=== PATIENT | male | born 1935 | race Caucasian/White ===

== ENCOUNTER 2017-04-18 17:01 | Inpatient (IN) | payer OTHER ==
[~2017-04-18] VITALS: Ht 177.8 cm; Wt 86.4 kg
--- NOTE | ~2017-04-18 | 2DMMODE ---
[facility] [place] [address] 2 D/M-MODE ECHOCARDIOGRAM Name: MARIAJOSE JOHNSON Room #: 204-P [facility] IN .#: [id number] Admission: 04/18/17 Attend Phys: Pilo Sotelo, Discharge: Date of : 39 Date of Service: 04/19/17 1614 Report #: [id number] THIS REPORT FOR: //name// APPROVED REPORT Study performed: 04/19/2017 12:48:32 EXAM: Comprehensive 2D, Doppler, and color-flow Echocardiogram Patient Location: Observation Status: routine BSA: 2.08 HR: 59 bpm BP: 126/70 mmHg Other Information Study Quality: Adequate Indications Chest Pain 2D Dimensions RVDd: 37.94 mm LVEF(%): 61.65 (>50%) IVSd: 9.05 (7-11mm) LVOT Diam: 22.14 (18-24mm) LVDd: 49.37 mm PWd: 9.63 (7-11mm) Ascending Ao: 32.17 (22-36mm) LVDs: 32.97 (25-40mm) Aortic Root: 33.70 mm Guillaume's LVEF: 61.65 % Volumes Left Atrial Volume (Systole) Single Plane 4CH: 63.91 mL Single Plane 2CH: 44.51 mL LA ESV Index: 28.00 mL/m2 Aortic Valve AoV Peak Zach.: 1.14 m/s AO Peak Gr.: 5.83 mmHg LVOT Max P.21 mmHg LVOT Max V: 0.90 m/s CHANTAL Vmax: 3.02 cm2 Mitral Valve E/A Ratio: 0.9 MV Decel. Time: 170.92 ms MV E Max Zach.: 0.75 m/s [facility] [place] [address] 2 D/M-MODE ECHOCARDIOGRAM Name: MARIAJOSE JOHNSON Room #: 204-P [facility] IN .R.#: [id number] Admission: 04/18/17 Attend Phys: Pilo Sotelo, Discharge: Date of : 39 Date of Service: 04/19/17 1614 Report #: [id number] MV A Zach.: 0.83 m/s MV PHT: 49.57 ms IVRT: 101.50 ms Pulmonary Valve PV Peak Zach.: 0.93 m/s PV Peak Gr.: 3.46 mmHg Pulmonary Vein P Vein S: 0.41 m/s P Vein A: 0.34 m/s P Vein D: 0.48 m/s P Vein A Dur.: 124.6 msec P Vein S/D Ratio: 0.85 Tricuspid Valve TR Peak Zach.: 2.59 m/s RAP Estimate: 5.00 mmHg TR Peak Gr.: 26.78 mmHg PA Pressure: 32.00 mmHg Left Ventricle The left ventricle is normal size. There is normal left ventricular wall thickness. The left ventricular systolic function is normal. The left ventricular ejection fraction is within the normal range. LVEF is 60%. Grade I - abnormal relaxation pattern. Right Ventricle The right ventricle is normal size. The right ventricular systolic function is normal. Atria The left atrium size is normal. The right atrium size is normal. Aortic Valve Aortic valve leaflets are thickened. Trace aortic regurgitation. There is no aortic valvular stenosis. Mitral Valve Mitral valve leaflets are mildly thickened. Trace mitral regurgitation. No evidence of mitral valve stenosis. Tricuspid Valve The tricuspid valve is normal in structure. There is trace tricuspid regurgitation. The right atrial pressure is estimated at 5 mmHg. There is mild pulmonary hypertension with an estimated PAP of 32 mmHg. Pulmonic Valve [address] [address] 2 D/M-MODE ECHOCARDIOGRAM Name: MARIAJOSE JOHNSON Room #: 204-P [facility] IN [facility]#: [id number] Admission: 04/18/17 Attend Phys: Pilo Sotelo, Discharge: Date of : 39 Date of Service: 04/19/17 1614 Report #: [id number] The pulmonary valve is normal in structure. Trace pulmonic regurgitation. Great Vessels The aortic root is normal in size. The ascending aorta is normal in size. IVC is normal in size and collapses >50% with inspiration. Pericardium There is no pericardial effusion. <Conclusion> The left ventricle is normal size. The left ventricular systolic function is normal. The left ventricular ejection fraction is within the normal range. LVEF is 60%. Grade I - abnormal relaxation pattern. The right ventricle is normal size. The left atrium size is normal. Aortic valve leaflets are thickened. Trace aortic regurgitation. Trace mitral regurgitation. There is trace tricuspid regurgitation. The right atrial pressure is estimated at 5 mmHg. There is mild pulmonary hypertension with an estimated PAP of 32 mmHg. There is no pericardial effusion. <ELECTRONICALLY SIGNED> By: Pilo Sotelo MD, FACC 04/19/17 1614 13 13 Pilo Sotelo MD, FACC /INF
--- NOTE | ~2017-04-18 | EKG ---
[address] [employer] [address] ELECTROCARDIOGRAM REPORT Name: MARIAJOSE JOHNSON Room #: 204- ADM IN M.R.#: [id number] Admission: 04/18/17 Attend Phys: Pilo Sotelo MD, Discharge: Date of : 37 Report #: [id number] THIS REPORT FOR: //name// [facility] Test Date: 2017-04-20 Test Time: 08:57:33 Pat Name: MARIAJOSE JOHNSON Department: Room: 204 P Gender: M National Sales Consultant: : 1935 Requested By: Pilo Sotelo Order Number: [id number] MD: Javier Camejo Measurements Intervals [place] Rate: 84 P: -6 [place]: 202 QRS: 30 QRSD: 73 T: 105 QT: 386 QTc: 457 Interpretive Statements Sinus rhythm Abnormal R-wave progression, early transition Nonspecific ST and T wave abnormality Compared to ECG 04/18/2017 17:02:56 No significant changes Electronically Signed On 04-20-2017 10:57:05 CDT by Javier Camejo [email or web address] <ELECTRONICALLY SIGNED> By: Javier Camejo MD, [facility] 04/20/17 1057 0857 0857 Javier Camejo MD, [facility] /EPI
--- NOTE | ~2017-04-18 | CATHLAB ---
[facility] [address] [place] [address] INVASIVE PROCEDURE REPORT Name: MARIAJOSE JOHNSON Room #: 204-P ADM IN .R.#: [id number] Admission: 04/18/17 Attend Phys: Pilo Sotelo, Discharge: Date of : 39 Date of Service: 04/19/17 1737 Report #: [id number] THIS REPORT FOR: //name// APPROVED REPORT Patient Details Patient Status: In-Patient Room #: 204 The patient is a 82 year-old male Event Personnel Pilo Sotelo Checking Department Supervisor, Milo Dan RN, Julia Hernadez RN RN, Anita Camilo, Abdon Ferguson Scrub Procedures Performed Art Access - R femoral artery* 81124 Initial Mod Sed Same Phys/QHP Gr5y 378119 10372 Mod Sed Same Phys/QHP Ea 055167 Left Heart Cath w/or w/o Coronaries [id number] [facility] w/wo Plasty Single LAD 641272 FFR 0601315 FFR Aortogram Abdominal Peripheral Angio 401214 Procedure Narrative The Right Groin^ was infiltrated with 1% Lidocaine subcutaneous anesthesia. A PINNACLE 6FR Sheath #[id number] sheath was inserted into the RFA^. Coronary angiography was performed using coronary diagnostic catheters. The right coronary system was accessed and visualized with a JR 4 catheter. The left coronary system was accessed and visualized with a JL 4 catheter. The left ventricle was accessed and visualized with a Pigtail catheter. Left ventricular/Aortic Valve gradient assessed via catheter pullback. Left ventriculogram was performed in 30 degree projection. The patient tolerated the procedure well and there were no complications associated with the procedure. Intraoperative Conscious Sedation Sedation start time: 08:50 Case end Time: 09:50 Fentanyl 50 mcg Versed 1 mg Fluoro Time: 12.20 minutes Dose: DAP 67360.30 cGycm2 1330 mGy Contrast Type and Amount: Visipaque 280 ml Hemodynamics The aortic pressure is 134/64 mmHg with a mean of 88 mmHg. [facility] [address] [place] [address] INVASIVE PROCEDURE REPORT Name: ALEXKRISMARIAJOSE Dionicio Room #: 204-P [facility]..#: [id number] Admission: 04/18/17 Attend Phys: Pilo Sotelo, Discharge: Date of : 37 Date of Service: 04/19/17 1737 Report #: [id number] ventricular pressure is 136/9 mmHg with a mean of mmHg. The left ventricular end diastolic pressure is 25 mmHg. PCI Technique Lesion Anticoagulation was achieved with Heparin. Percutaneous coronary intervention was performed on the first diagnonal branch segment. A LAUNCHER 6FR EBU 4 #[id number] Guide Catheter was used to engage the ostium. A Luge Wire .014 x 182CM #[id number] Interventional Guidewire was used to cross the lesion. BALLOON DILATION A Balloon catheter Sprinter OTW 2.25 x 12 #[id number] was inserted and inflated up to 4.00atm for 13seconds. Additional Inflation: 8.00atm for 30seconds. STENT DEPLOYMENT A drug-eluting stent RESOLUTE OTW 2.25 X 12 #[id number] was inserted and inflated up to 14.00atm for 29seconds. Conclusion #1 successful PTCA stent drug-eluting of the proximal diagonal branch subtotally occluded to 0% with CAROLIN grade 3 flow placement of a 2.25 x 12 resolute to 2.5 mm in size. 0% residual #2 LAD with a proximal mid vessel lesion of 70% FFR with 3 minute adenosine infusion 0.84 continue to treat this medically this extends around the apex #3 left main mildly disease giving rise to LAD and circumflex #4 moderate size circumflex artery with mild disease or so ostial first OM lesion of 70% with mild diffuse disease distally is nondominant but moderate distribution. #5 dominant right coronary artery with an eccentric mid vessel lesion of 50% mild diffuse disease distally anatomically dominant but codominant do the distribution of the circumflex by anatomy. #6 abdominal aorta intact without significant intervening mildly ectatic renal arteries are patent Recommendations and plan continue aggressive risk factor modification dual antiplatelet therapy at least one year will have close follow-up regarding this mid LAD lesion which does not warrant intervention yet. We'll have schedule follow-up with nuclear testing and/or symptoms in the next 3-6 months. [facility] [address] [place] [address] INVASIVE PROCEDURE REPORT Name: MARIAJOSE JOHNSON Room #: 204-P [facility] IN M.R.#: [id number] Admission: 04/18/17 Attend Phys: Pilo Sotelo, Discharge: Date of : 37 Date of Service: 04/19/171736 Report #: [id number] No lifting for 48 hours to line tub Jacuzzi or Beck for a week. No MRI or dental work for 3 months <ELECTRONICALLY SIGNED> By: Pilo Sotelo MD, FACC 04/19/171736 36 36 Pilo Sotelo MD, FACC /INF
--- NOTE | ~2017-04-18 | H ---
[facility] [place] [address] HISTORY AND PHYSICAL Name: ALEXFCO D Room #: 204-P [facility] IN M.R.#: [id number] Admission: 04/18/17 Attend Phys: Pilo Sotelo MD, Discharge: 04/20/17 Date of : 37 Report #: [id number] THIS REPORT FOR: //name// CC: BHARGAVI Sotelo DATE OF SERVICE: 04/18/2017 LOCATION: The patient is in 204. HISTORY OF PRESENT ILLNESS: The patient is an 82-year-old male patient who is referred to me through Dr. Sneed. He has been having some accelerating anginal pattern over the last couple of weeks. His worse episode was last night approximately 3:30 a.m. and actually would be early this morning with some mild shortness of breath, but this resolved after 15 or 20 minutes, and he elected not to come to the emergency room. He discussed this case ____ with Dr. Sneed this morning, and he called me and it sounds like he has been having some accelerating anginal pattern here. Subsequently brought to the emergency room for evaluation and found to have a troponin of 1.69. The EKG does not have a current of injury. He takes no medications. He does not have the known cardiac disease. There is no family history of premature coronary disease. He has been recommended cholesterol medicine by Dr. Maza but has refused this in the past. He has had borderline hypertension. He takes Benadryl only at night for sleep. SOCIAL HISTORY: He is a retired [employer]. He has remarried. He has lost 2 wives to cancer. Prior alcohol and minimal tobacco but none in years. FAMILY HISTORY: His father lived to . There is no premature coronary disease in the brothers, sisters or mother. REVIEW OF SYSTEMS: Negative except for some occasional nocturia. PAST MEDICAL HISTORY: Essentially negative except for borderline cholesterol. He has never been hospitalized. He takes no medications except Benadryl at night for sleep. LABORATORY WORK: Potassium 3.9, creatinine 1.4. Troponin 1.69. H and H are 14 and 42, platelets 198, white count 6.1. EKG: Normal sinus rhythm, normal tracing. His chest x-ray is normal, some minimal left basilar atelectasis, no acute process. PHYSICAL EXAMINATION: GENERAL: He is pleasant and alert. He is pain free. [facility] [address] [place] [address] HISTORY AND PHYSICAL Name: FCO JOHNSON Room #: [address] [place] [address]#: [id number] Admission: 04/18/17 Attend Phys: Pilo Sotelo MD, Discharge: 04/20/17 Date of : 37 Report #: [id number] VITAL SIGNS: Blood pressure 146/92, pulse 60s. HEENT: Eyes reveal xanthelasmas. Pharynx is clear. NECK: Shows preserved upstrokes without JVD or bruits. LUNGS: Clear. CARDIAC: Regular rate and rhythm, S1 and S2. There is no significant murmur or gallop. ABDOMEN: Soft. No HSM or abdominal bruit. EXTREMITIES: Reveal no edema. Distal pulses were intact. NEUROLOGIC: Nonfocal. SKIN: Warm and dry without xanthoma or ulcer. MUSCULOSKELETAL: Generalized arthritic changes. ASSESSMENT: 1. Jjr-UV-icwomurxc myocardial infarction with troponin elevation to 1.7 (currently pain free). 2. Suspected coronary artery disease based on above. 3. Hypercholesterolemia by history. 4. Borderline hypertension. RECOMMENDATIONS AND PLAN: He has gotten one shot of Lovenox in the Emergency Room, aspirin, Lipitor and a beta-sumeet, 25 of Toprol. We will repeat EKG, troponin and lipids in the morning. We will proceed to the catheterization lab to delineate the anatomy. We will also obtain echo Doppler looking for wall motion abnormality and valvular issues. Risks, benefits and alternatives were discussed with Fco and his . He does elect to proceed and will also forward on to Dr. Maza. Thank you for allowing us to assist in the care of this patient. <ELECTRONICALLY SIGNED> By: Pilo Sotelo MD, FACC 04/29/17 1232 2141 19 Pilo Sotelo MD, FACC /nt
--- NOTE | ~2017-04-18 | D ---
[facility] [place] [address] [place] [address] DISCHARGE SUMMARY Name: ALEXMARIAJOSE D Room #: 204-P [facility] IN M.R.#: [id number] Admission: 04/18/17 Attend Phys: Pilo Sotelo MD, Discharge: 04/20/17 Date of : 37 Report #: [id number] THIS REPORT FOR: //name// CC: BHARGAVI Sotelo DATE OF SERVICE: 04/20/2017 HOSPITAL COURSE: The patient is an 82-year-old male admitted with non-STEMI, recurrent chest pain and a slight elevation in troponin to 1.7. Subsequently stabilized, pain free and taken to the catheterization lab the following morning. Elevated lipids were found with cholesterol of 204, an LDL 127 and triglycerides 187. The catheterization lab revealed a subtotal diagonal branch, which was fairly large off of LAD system, which extended to the apex. This was successfully dilated and stented with a 2.25 x 12 Resolute drug-eluting stent, postdilated to 2.5 mm. CAROLIN grade 3 flow. Had some spasm initially and some transient vessel closure, but this did resolve. The LAD had a lesion just distal 65-70% eccentric lesion. I utilized FFR with 3-minute adenosine infusion. The FFR was 0.84, would suggest not to intervene into this vessel. I felt like there was some relatively unhealthy endothelium the way the diagonal reacted with the stent placement with spasm and transient vessel closure. I would like to get him stabilized and show definite ischemia in the anterior wall before any intervention to this LAD, although would be quite amenable. Mild RCA and circumflex disease. LV function was preserved. Troponin this morning was 1.98. Laboratory work is pending this morning. He is up and ambulating and feeling well. No recurrent chest pain or pressure. The groin side is stable, slightly tender. No bruit. He will be discharged to home on metoprolol 25, Effient 10 mg, full aspirin 325, Lipitor 40 mg, low dose RACHAEL inhibitor and 10 mg of lisinopril. No lifting for 48 hours. No lying in tub, Jacuzzi or Beck for a week. No MRI or dental work for 3 months. DISCHARGE DIAGNOSES: 1. Non-ST elevation myocardial infarction. 2. Coronary artery disease with successful PTCA stent, subtotal diagonal branch as stated above. Moderate LAD lesion, which we are following. 3. Hypercholesterolemia. 4. Borderline hypertension. RECOMMENDATIONS AND PLAN: As stated above, we will continue dual antiplatelet therapy 6-12 months. We will see him in 3 months and evaluation of the LAD lesion with stress echo or nuclear testing in the next 3-6 months, sooner if you have any anginal symptoms. I expect all of his anginal complaints to be [facility] [address] [place] [address] DISCHARGE SUMMARY Name: ALEXMARIAJOSE D Room #: 204-P [facility] IN M.R.#: [id number] Admission: 04/18/17 Attend Phys: Pilo Sotelo MD, Discharge: 04/20/17 Date of : 37 Report #: [id number] resolved with the stenting of the diagonal branch. Thank you for asking me to assist in the care of this patient. <ELECTRONICALLY SIGNED> By: Pilo Sotelo MD, FACC 04/29/17 1232 0832 0855 Pilo Sotelo MD, FACC /nt
--- NOTE | ~2017-04-18 | EKG ---
[address] [place] [place] [address] ELECTROCARDIOGRAM REPORT Name: MARIAJOSE JOHNSON Room #: 204-P ADM IN M.R.#: [id number] Admission: 04/18/17 Attend Phys: Pilo Sotelo MD, Discharge: Date of : 37 Report #: [id number] THIS REPORT FOR: //name// [facility] Test Date: 2017-04-19 Test Time: 06:51:40 Pat Name: MARIAJOSE JOHNSON Department: Room: [facility] Gender: M Instructional Coach: SHERIDAN : 1935 Requested By: Nikki Shanks Order Number: [id number] MD: Javier Camejo Measurements Intervals [place] Rate: 61 P: 20 [place]: 207 QRS: 47 QRSD: 79 T: 102 QT: 448 QTc: 452 Interpretive Statements Sinus rhythm Nonspecific ST segment abnormality Compared to ECG 04/18/2017 17:02:56 No significant change was found Electronically Signed On 04-20-2017 10:03:48 CDT by Javier Camejo [email or web address] <ELECTRONICALLY SIGNED> By: Javier Camejo MD, [facility] 04/20/17 1003 0651 0651 Javier Camejo MD, [facility] /EPI
--- NOTE | ~2017-04-18 | EKG ---
[address] [place] [address] ELECTROCARDIOGRAM REPORT Name: MARIAJOSE JOHNSON Room #: 204- ADM IN M.R.#: [id number] Admission: 04/18/17 Attend Phys: Pilo Sotelo MD, Discharge: Date of : 37 Report #: [id number] THIS REPORT FOR: //name// [facility] Test Date: 2017-04-19 Test Time: 13:22:17 Pat Name: MARIAJOSE JOHNSON Department: Room: 204 Gender: M Brush Head Maker: Hellen CORTEZ : 1935 Requested By: Pilo Sotelo Order Number: [id number] MD: Javier Camejo Measurements Intervals [place] Rate: 56 P: 20 ID: [id number] QRS: 37 QRSD: 77 T: 103 QT: 475 QTc: 459 Interpretive Statements Sinus bradycardia Abnormal R-wave progression, early transition Compared to ECG 04/18/2017 17:02:56 No significant change was found Electronically Signed On 04-20-2017 10:43:50 CDT by Javier Camejo [email or web address] <ELECTRONICALLY SIGNED> By: Javier Camejo MD, [facility] 04/20/17 1043 1322 1322 Javier Camejo MD, [facility] /EPI
--- NOTE | ~2017-04-18 | EKG ---
[address] [address] ELECTROCARDIOGRAM REPORT Name: MARIAJOSE JOHNSON Room #: 204-P ADM IN M.R.#: [id number] Admission: 04/18/17 Attend Phys: Pilo Sotelo MD, Discharge: Date of : 37 Report #: [id number] THIS REPORT FOR: //name// [facility] Test Date: 2017-04-18 Test Time: 17:02:56 Pat Name: MARIAJOSE JOHNSON Department: Room: 204 Gender: M Cardiac Cath Lab Manager: MZOOK : 1935 Requested By: Nikki Shanks Order Number: [id number] MD: Zac Cui Measurements Intervals [place] Rate: 78 P: 27 [place]: 202 QRS: 34 QRSD: 93 T: 88 QT: 376 QTc: 429 Interpretive Statements Sinus rhythm Nonspecific T abnrm, anterolateral leads No previous ECG available for comparison Electronically Signed On 04-18-2017 22:23:21 CDT by Zac Cui [email or web address] <ELECTRONICALLY SIGNED> By: Zac Cui MD 04/18/17 2223 01 01 Zac Cui MD /TRUDI
[2017-04-18 17:02] VITALS: BP 180/101
[2017-04-18] MEDS ORDERED: BENADRYL25 MG PO (17:58)
[2017-04-18 18:00] LABS: ABSOLUTE NEUTROPHILS 2.8 thou/uL (1.4-8.2); BASOPHILS 0.6 % (0.0-2.0); EOSINOPHILS 1.9 % (0.0-3.0); HEMATOCRIT 42.4 % (42.0-52.0); HEMOGLOBIN 14.5 gm/dL (14.0-18.0); LYMPHOCYTES 39.4 % (24.0-44.0); MCH 30.3 pg (26.0-34.0); MCHC 34.2 g/dL (28.0-37.0); MCV 88.6 fL (80.0-100.0); MONOCYTES 11.7 % (1.0-8.0); PLATELET COUNT 198 thou/uL (150-400); POLYS 46.4 % (36.0-66.0); RBC 4.79 mil/uL (4.50-6.00); RDW 13.2 % (10.5-14.5); WBC 6.1 thou/uL (4.0-11.0)
[2017-04-18 18:02] LABS: MANUAL DIFF NO
[2017-04-18 18:06] LABS: CALCIUM 9.5 mg/dL (8.5-10.1); CREATININE 1.4 mg/dL (0.7-1.3); POTASSIUM 3.9 mmol/L (3.5-5.1)
[2017-04-18 18:17] LABS: TROPONIN-I 1.69 ng/mL (<0.04-0.07)
[2017-04-18 18:57] VITALS: BP 141/72
[2017-04-18 19:41] VITALS: BP 147/92
[2017-04-18 23:32] VITALS: BP 115/59
[2017-04-19] VITALS (13 sets, daily range): BP systolic 119–177; BP diastolic 64–97
[2017-04-19 03:41] LABS: CHOLESTEROL 204 mg/dL (<200); HDL CHOLESTEROL 40 mg/dL (>40); LDL CHOLESTEROL 127 mg/dL (<100); TC:HDL 5.1 Ratio (Not establshd); TRIGLYCERIDE 187 mg/dL (<150); VLDL 37 mg/dL (<40)
[2017-04-19 03:44] LABS: SERUM ASSESSMENT Clear
[2017-04-20 04:47] VITALS: BP 130/76
[2017-04-20 07:35] VITALS: BP 133/79
[2017-04-20] MEDS ORDERED: EFFIENT10 MG PO (08:06)
[2017-04-20] MEDS ORDERED: ATORVASTATIN CA40 MG PO (08:06)
[2017-04-20] MEDS ORDERED: METOPROLOL SUCC25 M1 PO (08:06)
[2017-04-20] MEDS ORDERED: ASA5UEC PO (08:07)
[2017-04-20] MEDS ORDERED: LISINOPRIL5 MG PO (08:37)
[2017-04-20 10:01] LABS: CALCIUM 8.9 mg/dL (8.5-10.1); CREATININE 1.3 mg/dL (0.7-1.3); POTASSIUM 3.7 mmol/L (3.5-5.1)
[2017-04-20 10:02] LABS: TROPONIN-I 1.2 ng/mL (<0.04-0.07)
[2017-04-20 11:09] VITALS: BP 133/79
== END 2017-04-20 11:00 | disposition home or self-care (01) | DRG 247 ==
LOC: ER 17:01 → 2N 18:26 → EROBS 18:26 → 2N 19:21
PROVIDERS: Emergency Medicine; Internal Medicine Cardiovascular Disease
DX: I21.4 Non-ST elevation (NSTEMI) myocardial infarction (principal); I25.10 Atherosclerotic heart disease of native coronary artery without angina pectoris; R03.0 Elevated blood-pressure reading, without diagnosis of hypertension; E78.00 Pure hypercholesterolemia, unspecified; Z82.49 Family history of ischemic heart disease and other diseases of the circulatory system
CPT/HCPCS: 10081

== ENCOUNTER → 2019-10-19 | Outpatient (CLI) | payer OTHER ==
[~2019-10-19] MED LIST: ASA5UEC PO; ATORVASTATIN CA40 MG PO; BENADRYL25 MG PO; EFFIENT10 MG PO; LISINOPRIL5 MG PO; METOPROLOL SUCC25 M1 PO
== END ==
LOC: SJCVCIMAG 10:37 → SJCVC 10:37 → SJCVCIMAG 13:33
DX: I65.23 Occlusion and stenosis of bilateral carotid arteries (principal); I25.10 Atherosclerotic heart disease of native coronary artery without angina pectoris; E78.5 Hyperlipidemia, unspecified; E78.00 Pure hypercholesterolemia, unspecified; I10 Essential (primary) hypertension; Z95.828 Presence of other vascular implants and grafts; F17.210 Nicotine dependence, cigarettes, uncomplicated; Z79.82 Long term (current) use of aspirin; Z79.899 Other long term (current) drug therapy

== ENCOUNTER → 2020-07-08 | Outpatient (CLI) | payer OTHER | LOC: SJCVC 11:41 | PROVIDERS: ATTEND Internal Medicine Cardiovascular Disease | DX: I25.10 Atherosclerotic heart disease of native coronary artery without angina pectoris (principal); I65.23 Occlusion and stenosis of bilateral carotid arteries; I10 Essential (primary) hypertension; E78.00 Pure hypercholesterolemia, unspecified; Z79.899 Other long term (current) drug therapy; Z87.891 Personal history of nicotine dependence ==

== ENCOUNTER → 2021-01-17 | Outpatient (CLI) | payer OTHER | LOC: SJCVCIMAG 08:24 | PROVIDERS: ATTEND Internal Medicine Cardiovascular Disease | DX: I25.10 Atherosclerotic heart disease of native coronary artery without angina pectoris (principal); I10 Essential (primary) hypertension; Z98.61 Coronary angioplasty status ==